=== PATIENT | male | born 1940 | race Caucasian/White ===

== ENCOUNTER 2019-09-26 00:12 | Inpatient (IN) | payer MEDICARE, BC, SELFPAY ==
[2019-09-26] VITALS (31 sets, daily range): BP systolic 112–150; BP diastolic 51–75; PULSE 60–87; RESP 17–26; TEMP 36.8–38.4; O2SAT 93–100; BMI 45.9
--- NOTE | ~2019-09-26 | US_ITS ---
EXAMINATION: US venous doppler [facility] DATE: 09/26/2019 14:29 INDICATION: Left lower limb edema. TECHNIQUE: Grayscale ultrasound images without and with compression and Doppler ultrasound images of the left lower extremity veins were obtained. COMPARISON: None. FINDINGS: The visualized portions of left common femoral vein, profunda (deep) femoral vein, femoral vein, popl iteal vein, peroneal veins, posterior tibial veins, and greater saphenous vein outflow are patent. IMPRESSION: 1. No deep venous thrombosis. Reviewed, dictated and finalized at location B. OR FIRE PROTECTION ENGINEER
--- NOTE | ~2019-09-26 | XR_ITS ---
EXAMINATION: XR chest 2V DATE: 09/26/2019 01:33 INDICATION: Transient alteration of awareness TECHNIQUE: frontal and lateral views of the chest were obtained. COMPARISON: Chest radiograph dated 03/28/2018 FINDINGS: Lung volumes are small. Calcified nodule in the right lower lung zone consistent with old granulomato us disease. No other airspace opacities, pulmonary edema, pleural effusion or pneumothorax. The cardi omediastinal silhouette is normal. Median sternotomy wires and mediastinal surgical clips are seen, l ikely from prior coronary artery bypass grafting. IMPRESSION: 1. No acute cardiopulmonary disease. Reviewed, dictated and finalized at location A. ERATIVE MANAGER
--- NOTE | ~2019-09-26 | US_ITS ---
EXAMINATION: US venous doppler [facility] DATE: 09/26/2019 14:28 INDICATION: Left upper limb edema. TECHNIQUE: Grayscale ultrasound images without and with compression and Doppler ultrasound images of the left upper extremity veins were obtained. COMPARISON: None. FINDINGS: The visualized portions of the left internal jugular vein, subclavian vein, axillary vein, brachial v eins, basilic vein, cephalic vein, radial vein, and ulnar vein are patent. IMPRESSION: 1. No deep venous thrombosis. Reviewed, dictated and finalized at location B. GRADER
--- NOTE | ~2019-09-26 | XR_ITS ---
EXAMINATION: XR chest 1V portable DATE: 09/30/2019 15:25 INDICATION: Shortness of breath and wheezing. TECHNIQUE: A single frontal view of the chest was obtained. COMPARISON: Chest 2 views 09/26/2019 FINDINGS: There are mild airspace opacities in right lower lung zone. No pleural effusion or pneumoth orax. The heart size is normal. Median sternotomy wires and mediastinal surgical clips are seen, like ly from prior coronary artery bypass grafting. IMPRESSION: 1. Mild airspace opacities in right lower lung zone, consistent with atelectasis versus pneumonia. Reviewed, dictated and finalized at location A. NOGRAPHY PROFESSOR IMPRESSION: 1. Mild airspace opacities in right lower lung zone, consistent with atelectasi s versus pneumonia.
--- NOTE | ~2019-09-26 | US_ITS ---
US renal BI 09/30/2019 16:47 Procedure: Realtime transabdominal ultrasound of the kidneys and bladder. Indication: UTI. Bacteremia. Comparison: No prior studies for comparison. Findings: Renal echotexture is normal bilaterally without hydronephrosis, contour deforming mass or r enal calculus. The right kidney measures 12 cm and left kidney measures 12.2 cm. Bladder within norm al limits. Impression: 1: Unremarkable renal ultrasound. No stones, masses or hydronephrosis. Reviewed, dictated and finalized at location A. ICAL AUDITOR Impression: 1: Unremarkable renal ultrasound. No stones, masses or hydronephrosis.
--- NOTE | 2019-09-26 00:17 | ED.AMS ---
HPI - Altered Mental Status General Chief Complaint: Altered Mental Status Stated Complaint: AMS Time Seen by Provider: 09/26/19 00:15 Source: EMS and RN notes reviewed Mode of arrival: EMS Limitations: altered mental status History of Present Illness HPI narrative: Pt is a 78 y/o male who presents to the ED, via EMS from [facility] D[facility] Unit, with c/o decreased level of responsiveness that began TOOLROOM CHECKER. EMS was at bedside and provided the information. EMS is unsure if pt is normally on O2 at baseline. Pt is currently on 2L O2 NC. Pt just finished his course of medication for a respiratory infection. HPI is limited due to pt's AMS. complaint: decreased responsiveness Onset (ago): unknown Context: diabetes Associated symptoms: other (limited due to pt's AMS) Treatments prior to arrival: oxygen Related Data Allergies Allergy/AdvReac Type Severity Reaction Status Date / Time No Known Allergies Allergy Verified 01/22/18 01:47 NKFA Allergy Unknown Uncoded 02/24/03 12:32 Review of Systems Review of Systems: ROS unobtainable: other (limited due to pt's AMS) Neurologic: Reports other (decreased level of responsiveness) [facility] Past Medical History Medical History (Updated 09/26/19 @ 03:16 by Madison Ramirez MD) Anxiety Atrial fibrillation BPH (benign prostatic hyperplasia) CAD (coronary artery disease) 3 stents right coronary 1988, CABG 1995 LOZANO to LAD, SADIE to RCA, vein graft to ramus, vein graft to circumflex, PCI 2006, CHF (congestive heart failure) echocardiogram March 2018: Mild concentric left ventricular hypertrophy, diastolic dysfunction, elevated left heart filling pressure, EF 55-60, atrial fibrillation, moderate left atrial enlargement Dementia with behaviors Depression DNR (do not resuscitate) HTN (hypertension) Hyperlipidemia Obstructive sleep apnea with CPAP of 9 recommended on polysomnogram from February 2017 Type II diabetes mellitus on oral medications Surgical History Surgical History (Updated 09/26/19 @ 02:05 by Nazanin Santos DO) H/O arthroscopic knee surgery left partial meniscectomy and chondroplasty May 2012 H/O colonoscopy 2010 Hx of CABG Four vessel CABG 1997 Family History Family History (Updated 03/31/16 @ 23:19 by DOCTOR UNKNOWN) Sibling Family history of blood dyscrasia Family history of diabetes mellitus in first degree relative Family history of dementia Family history of heart disease in male family member before age 55 Other Diabetes mellitus Family history of arthritis Family history of cardiovascular disease Family history of malignant neoplasm Social History Social History (Updated 09/26/19 @ 00:28 by Gracie Otero) Smoking status: Former smoker Smoking end date: 09/03/1959 Alcohol intake: never Gender identity (if verbalized by the patient): Male Exam Const: General: no acute distress and alert Nutritional Appearance: obese Limitations: other limitations (nonverbal) HENMT: Mouth: Yes lip normal and Yes dry mucous membranes Eyes: Pupils: Equal, round and reactive pupils present Resp: Effort & Inspection: normal respiratory effort Auscultation: wheezes (basilar) Cardio: Rate: regular rate Rhythm: regular rhythm Heart sounds: no murmurs GI: GI Palp: Yes Soft to palpation and No Tenderness to palpation present (GI) Auscultation: normal bowel sounds Skin: General skin exam: normal color Neuro: General: confusion and other (eyes open, alert, nonverbal) Extrem: General: normal to inspection, full ROM and no clubbing, cyanosis or edema Psych: Affect: normal affect Attitude: cooperative Course Course Emergency Course: Patient presents with fever and report of worsening mental status from [facility]. Unclear what patient's baseline level is given he has dementia. Patient reportedly nonverbal and has not been verbal in the emergency department. Patient with pyuria noted. Recent respiratory infection
--- NOTE | 2019-09-26 00:27 | ECG_ITS ---
Measurements Intervals [place] Rate: 63 P: CA: 0 QRS: 66 QRSD: 122 T: -21 QT: 420 QTc: 432 Interpretive Statements ATRIAL FIBRILLATION RIGHT BUNDLE BRANCH BLOCK NONSPECIFIC ST & T-WAVE ABNORMALITY- INFERIOR LEADS ABNORMAL ECG Electronically Signed On 09-26-2019 7:02:37 CORRECTIONS CADET by Ritesh Burton D.O.
[2019-09-26] MEDS: LACTATED RINGERS 1,000 ML 999 ML IV CONT (00:48)
[2019-09-26 00:51] LABS: Basophils Percent Auto 0.4 % (0.2-1.2); Eosinophils Percent Auto 0.4 % (0-4.4); Hematocrit 40.4 % (42.0-52.0); Hemoglobin 12.6 g/dL (14.0-18.0); Immature Granulocyte Absolute 0.11 K/mm3 (0.00-0.031); Lymphocytes Percent Auto 9.2 % (18.3-44.2); Mean Corpuscular HGB Conc 31.2 g/dl (32-36); Mean Corpuscular Hemoglobin 29.9 pg (26-34); Mean Platelet Volume 11.5 fl (7.4-10.4); Monocytes Absolute Auto 1.2 K/mm3 (0.1-0.6); Monocytes Percent Auto 10.6 % (2.6-8.5); Neutrophils Absolute Auto 8.5 K/mm3 (1.3-6.7); Neutrophils Percent Auto 78.4 % (45.5-73.1); Platelet Count Result 161 k/mm3 (150-375); Red Blood Count 4.21 M/mm3 (4.6-6.20); Red Cell Distribution Width 15.4 % (11.5-14.5); White Blood Count 10.8 K/mm3 (4.5-10.0)
[2019-09-26 01:00] LABS: INR 1.3
[2019-09-26 01:01] LABS: Partial Thromboplastin Time 41.7 SECONDS (22.3-36.8)
[2019-09-26 01:04] LABS: Lactic Acid Reflex 1.6 mmol/L (0.7-2.1)
[2019-09-26 01:09] LABS: Alanine Aminotransferase 33 U/L (4-50); Albumin Level 3.1 g/dL (3.5-5.1); Alkaline Phosphatase 115 U/L (38-126); Aspartate Amino Transferase 41 U/L (17-59); Bilirubin,Total 1.2 mg/dL (0.2-1.3); Blood Urea Nitrogen 22 mg/dL (9-20); Calcium 8.3 mg/dL (8.4-10.2); Carbon Dioxide 33 mmol/L (22-30); Chloride 103 mmol/L (98-107); Estimated CRCL calculation 72 ml/min; Estimated Glomerular Filt Rate > 60; Glucose 141 mg/dL (75-110); Potassium 3.8 mmol/L (3.4-5.0); Sodium 141 mmol/L (137-145)
[2019-09-26 01:16] LABS: Add Urine Microscopic? YES; Appearance Urine Clear (Clear); Bacteria Urine Trace /hpf; Bilirubin Urine Negative (Negative); Color Urine Amber (Yellow); Glucose Urine UA Negative (Negative); Ketones Urine Negative (Negative); Leukocyte Esterase Ur 1+ LEU/UL (Negative); Mucus Urine Rare /lpf; Nitrate Urine Negative (Negative); Protein Urine 1+ mg/dL (Negative); Specific Grav Ur 1.025 (1.001-1.035)
[2019-09-26 01:28] LABS: Blood Urine Negative (Negative)
[2019-09-26 01:31] LABS: CRP 16.7 mg/dL (<1.0)
--- NOTE | 2019-09-26 03:37 | PM.IMHP ---
H&P: HPI History of Present Illness Chief complaint: sepsis uti pneumonia Narrative: Fili Bay is a 78 year old male with a past medical history of of atrial fibrillation, BPH and dementia with behaviors who presented from [facility] dementia unit via EMS for worsening mental status from baseline. Source of information is ER records and past medical records. Patient is unable to provide any history due to his dementia. Patient arrived to the ER febrile with a temperature of 101.1?. He had evidently just finished a course of azithromycin on the for upper respiratory symptoms. Patient was noted to be wheezing on arrival to the ER. The patient will monitor curse words at staff if provided with noxious or painful stimuli. Patient was requiring 2 L nasal cannula in the ER to maintain oxygen saturations. Patient is incontinent of urine and is wearing an adult diaper. Review of Systems Review of Systems: ROS unobtainable: unobtainable due to mental status PMFSH Past Medical History Medical History (Updated 09/26/19 @ 03:49 by Nazanin Santos DO) Anxiety Atrial fibrillation BPH (benign prostatic hyperplasia) CAD (coronary artery disease) 3 stents right coronary 1988, CABG 1995 LOZANO to LAD, SADIE to RCA, vein graft to ramus, vein graft to circumflex, PCI 2006, CHF (congestive heart failure) echocardiogram March 2018: Mild concentric left ventricular hypertrophy, diastolic dysfunction, elevated left heart filling pressure, EF 55-60, atrial fibrillation, moderate left atrial enlargement Dementia with behaviors Depression DNR (do not resuscitate) HTN (hypertension) Hyperlipidemia Obstructive sleep apnea with CPAP of 9 recommended on polysomnogram from February 2017 . The patient has a long history of noncompliance. Type II diabetes mellitus on oral medications Surgical History Surgical History (Updated 09/26/19 @ 02:05 by Nazanin Santos DO) H/O arthroscopic knee surgery left partial meniscectomy and chondroplasty May 2012 H/O colonoscopy 2010 Hx of CABG Four vessel CABG 1997 Family History Family History (Updated 03/31/16 @ 23:19 by DOCTOR UNKNOWN) Sibling Family history of blood dyscrasia Family history of diabetes mellitus in first degree relative Family history of dementia Family history of heart disease in male family member before age 55 Other Diabetes mellitus Family history of arthritis Family history of cardiovascular disease Family history of malignant neoplasm Social History Social History (Updated 09/26/19 @ 04:39 by Nazanin Santos DO) Social History: The patient is a long-term resident of [facility] dementia unit. Code status: DNR primary care physician: Dr. Elie Moore Smoking status: Former smoker Smoking end date: 09/03/1959 Alcohol intake: never Living arrangements: assisted Gender identity (if verbalized by the patient): Male Meds Home Medications and Allergies Home Medications Medication Instructions Recorded Confirmed Type escitalopram oxalate 5 mg PO DAILY 09/26/19 History Allergies Allergy/AdvReac Type Severity Reaction Status Date / Time No Known Allergies Allergy Verified 09/26/19 03:19 Vital Signs Vital Signs - 24 hr 09/26/19 00:10 09/26/19 01:01 09/26/19 01:30 Temperature 101.1 F H 99.1 F Pulse Rate 64 62 Respiratory Rate 21 H 17 Blood Pressure 112/52 L 131/59 L Pulse Oximetry 95 09/26/19 03:00 Temperature Pulse Rate 71 Respiratory Rate 26 H Blood Pressure 150/75 H Pulse Oximetry 95 Exam Narrative: Exam Narrative: PHYSICAL EXAM: WEIGHT 121.4 kg BMI 45.9 General: Chronically ill-appearing, obese HEENT: Normocephalic atraumatic, pupils are equal and reactive, no scleral icterus, nasal cannula in place, nares patent, Neck: Large neck circumference, no JVD, supple Respiratory: End-expiratory wheezing, shallow respirations Cardiovascular:
[2019-09-26] MEDS: IPRATROPIUM BR 0.02% INH SOLN 0.5 MG/2.5 ML VIAL INHALATION ×4 (03:42→20:13)
[2019-09-26] MEDS: LEVALBUTEROL NEB 1.25 MG/3 ML INHALATION ×4 (03:42→20:13)
[2019-09-26] MEDS: LACTATED RINGERS 1,000 ML 150 ML IV CONT ×2 (04:19→10:56)
--- NOTE | 2019-09-26 05:35 | ADMGEN ---
This patient, Fili Bay, was admitted to Medical Room 249-01. Patient/family oriented to hospital policies and general routines including ID bracelet, bed and alarms, visiting hours, pain management, procedures, bathroom and other care routines, personal items, smoking policy, room service/diet, and visiting hours. Valuables list has been completed. Information on how to activate the Rapid Response Team has been discussed. Patient/Family are encouraged to report perceived risks to care and to ask questions if they do not understand what they are told or what they should do.
[2019-09-26 08:54] LABS: Glucose Point of Care 118 (65-105)
--- NOTE | 2019-09-26 14:13 | PM.IMPN ---
Progress Note: A&P Assessment and Plan (1) Dementia: Qualifiers: Dementia type: Alzheimer's disease Alzheimer's disease onset: late-onset Dementia behavioral disturbance: with behavioral disturbance Qualified Code(s): G30.1 - Alzheimer's disease with late onset; F02.81 - Dementia in other diseases classified elsewhere with behavioral disturbance Code(s): F03.90 - Unspecified dementia without behavioral disturbance Status: Acute Assessment and Plan: Patient is 78-year-old male resident of senior care with history of dementia atrial fibrillation had developed fever and had been more somnolent and confused to further evaluate patient was sent to emergency department patient is unable to provide any review of symptoms or history suspect the patient may have a UTI and possibly pneumonia however chest x-ray did not show any acute cardiomegaly pulmonary pathology suspect patient may have UTI and started the patient on Rocephin, IV hydration, Tylenol for fever his fever is trending down now his granddaughter is present in the room but unable to provide extensive history. (2) Bacteriuria with pyuria: Code(s): R82.71 - Bacteriuria; R82.81 - Pyuria Status: Acute Assessment and Plan: Patient is empirically treated with the Rocephin will follow up on urine culture and sensitivity (3) Sepsis: Qualifiers: Sepsis acute organ dysfunction status: without acute organ dysfunction Sepsis type: sepsis due to unspecified organism Qualified Code(s): A41.9 - Sepsis, unspecified organism Code(s): A41.9 - Sepsis, unspecified organism Status: Acute Assessment and Plan: Patient met the criteria upon arrival with a leukocytosis tachypnea fever and source of infection possibly UTI and pneumonia will continue to monitor and follow up on the blood urine culture (4) UTI (urinary tract infection): Code(s): N39.0 - Urinary tract infection, site not specified Status: Acute Assessment and Plan: Plan is above (5) Pneumonia: Qualifiers: Laterality: unspecified laterality Lung location: unspecified part of lung Pneumonia type: due to unspecified organism Qualified Code(s): J18.9 - Pneumonia, unspecified organism Code(s): J18.9 - Pneumonia, unspecified organism Status: Acute Assessment and Plan: Upon arrival suspected patient may have pneumonia however chest x-ray does not show any cardiopulmonary pathology will continue to monitor (6) Atrial fibrillation: Code(s): I48.91 - Unspecified atrial fibrillation Status: Acute Assessment and Plan: Rate is controlled patient is not anticoagulated likely secondary to dementia and risk of fall Subjective Date/time seen: 09/26/19 14:13 Patient is 78-year-old male resident of senior care with history of dementia atrial fibrillation had developed fever and had been more somnolent and confused to further evaluate patient was sent to emergency department patient is unable to provide any review of symptoms or history suspect the patient may have a UTI and possibly pneumonia however chest x-ray did not show any acute cardiomegaly pulmonary pathology suspect patient may have UTI and started the patient on Rocephin, IV hydration, Tylenol for fever his fever is trending down now his granddaughter is present in the room but unable to provide extensive history. Review of Systems Review of Systems: ROS unobtainable: unobtainable due to mental condition Exam Narrative: Exam Narrative: Elderly frail nonverbal Const: General: comfortable and no acute distress HENMT: General nose exam: Normal nares present Mouth: Yes moist mucous membranes Eyes: General: appearance normal, both eyes and all related structures Sclera: sclerae normal Neck: Neck: supple Resp: Effort & Inspection: normal respiratory effort Auscultation: clear to auscultation bilaterally Cardio: Rate: regular rate Rhythm
[2019-09-26 15:49] LABS: Glucose Point of Care 70 (65-105)
[2019-09-26 16:28] LABS: Glucose Point of Care 126 (65-105)
--- NOTE | 2019-09-26 16:58 | PC.NURSE ---
Called pharmacy and requested one time dose of IV Ibuprofen be sent to floor for administration.
[2019-09-26] MEDS: IBUPROFEN IV 800 MG/200 ML 800 MG/200 ML BAG 400 MG IVPB (17:15)
[2019-09-26 18:49] LABS: Glucose Point of Care 220 (65-105)
[2019-09-26] MEDS: INSULIN ASPART (*BKC) 100 UNITS/ML SUB-Q (19:20)
[2019-09-26] MEDS: DABIGATRAN ETEXILATE 150 MG CAPSULE PO (20:54)
[2019-09-26] MEDS: FUROSEMIDE INJ 40 MG/4 ML VIAL IV PUSH (20:54)
[2019-09-26] MEDS: ATORVASTATIN 20 MG TABLET PO (20:55)
[2019-09-26] MEDS: DOXAZOSIN MESYLATE 4 MG TABLET 8 MG PO (20:58)
[2019-09-26] MEDS: DIVALPROEX SODIUM SPRINKLE 125 MG CAP.DR 250 MG PO (20:59)
[2019-09-26] MEDS: MEMANTINE 10 MG TABLET PO (21:02)
[2019-09-26] MEDS: FAMOTIDINE 20 MG TABLET 40 MG PO (21:02)
[2019-09-26 23:10] LABS: Glucose Point of Care 146 (65-105)
[2019-09-27] VITALS (25 sets, daily range): BP systolic 118–135; BP diastolic 48–73; PULSE 62–94; RESP 18–24; TEMP 36.1–39.2; O2SAT 91–98
[2019-09-27] MEDS: LEVALBUTEROL NEB 1.25 MG/3 ML INHALATION ×3 (02:01→14:22)
[2019-09-27] MEDS: IPRATROPIUM BR 0.02% INH SOLN 0.5 MG/2.5 ML VIAL INHALATION ×4 (02:01→19:16)
[2019-09-27 05:40] LABS: Hematocrit 37.1 % (42.0-52.0); Hemoglobin 11.3 g/dL (14.0-18.0); Immature Platelet Fraction Pct 5.6 % (0.9-11.2); Mean Corpuscular HGB Conc 30.5 g/dl (32-36); Mean Corpuscular Hemoglobin 29.4 pg (26-34); Mean Corpuscular Volume 96.4 fl (80-100); Mean Platelet Volume 11.6 fl (7.4-10.4); Platelet Count Result 135 k/mm3 (150-375); Red Blood Count 3.85 M/mm3 (4.6-6.20); Red Cell Distribution Width 15.5 % (11.5-14.5); White Blood Count 11.3 K/mm3 (4.5-10.0)
[2019-09-27 06:00] LABS: Blood Urea Nitrogen 22 mg/dL (9-20); Calcium 7.9 mg/dL (8.4-10.2); Carbon Dioxide 32 mmol/L (22-30); Chloride 103 mmol/L (98-107); Estimated CRCL calculation 72 ml/min; Estimated Glomerular Filt Rate > 60; Glucose 126 mg/dL (75-110); Potassium 3.5 mmol/L (3.4-5.0); Sodium 142 mmol/L (137-145)
[2019-09-27] MEDS: POTASSIUM CHLORIDE 10 MEQ TABLET.ER PO (08:03)
[2019-09-27] MEDS: POTASSIUM CHLORIDE 20 MEQ PACKET (FOR LIQUID) 40 MEQ PO (08:03)
[2019-09-27] MEDS: DONEPEZIL HCL 10 MG TABLET PO (08:03)
[2019-09-27] MEDS: DABIGATRAN ETEXILATE 150 MG CAPSULE PO ×2 (08:03→17:47)
[2019-09-27] MEDS: DIVALPROEX SODIUM SPRINKLE 125 MG CAP.DR 250 MG PO ×2 (08:03→20:57)
[2019-09-27] MEDS: ACETAMINOPHEN 325 MG TABLET 650 MG PO ×2 (08:03→18:16)
[2019-09-27] MEDS: GLIMEPIRIDE 2 MG TABLET PO (08:04)
[2019-09-27] MEDS: MEMANTINE 10 MG TABLET PO ×2 (08:04→20:58)
[2019-09-27] MEDS: FAMOTIDINE 20 MG TABLET 40 MG PO ×2 (08:04→20:58)
[2019-09-27] MEDS: ESCITALOPRAM OXALATE 5 MG TABLET PO (08:04)
[2019-09-27] MEDS: LOSARTAN POTASSIUM 100 MG TABLET PO (08:04)
[2019-09-27] MEDS: METOPROLOL SUCCINATE EXT REL 50 MG TABCR PO (08:04)
[2019-09-27] MEDS: FUROSEMIDE 40 MG TABLET PO ×2 (08:04→17:47)
[2019-09-27 08:44] LABS: Magnesium 2.1 mg/dL (1.6-2.3)
[2019-09-27 08:54] LABS: NT Pro B Type Natriuretic Pept 3750 PG/ML (5-100)
[2019-09-27 09:31] LABS: Glucose Point of Care 114 (65-105)
[2019-09-27 12:41] LABS: Glucose Point of Care 161 (65-105)
--- NOTE | 2019-09-27 15:09 | PM.IMPN ---
Progress Note: A&P Assessment and Plan (1) Dementia: Qualifiers: Dementia type: Alzheimer's disease Alzheimer's disease onset: late-onset Dementia behavioral disturbance: with behavioral disturbance Qualified Code(s): G30.1 - Alzheimer's disease with late onset; F02.81 - Dementia in other diseases classified elsewhere with behavioral disturbance Code(s): F03.90 - Unspecified dementia without behavioral disturbance Status: Acute Assessment and Plan: 09/27/19 15:09 Patient is 78-year-old male resident of senior care with history of dementia atrial fibrillation had developed fever and had been more somnolent and confused to further evaluate patient was sent to emergency department patient is unable to provide any review of symptoms or history suspect the patient may have a UTI and possibly pneumonia however chest x-ray did not show any acute cardiomegaly pulmonary pathology, suspect patient may have UTI and started the patient on Rocephin, IV hydration, patient patient urine and blood a growing Proteus mirabilis sensitive to Rocephin Tylenol for fever his fever is trending down, today patient is little more of a does smile his is present in the room sees able to communicate somewhat and feeding him, will consult ID for further recommendation (2) Bacteriuria with pyuria: Code(s): R82.71 - Bacteriuria; R82.81 - Pyuria Status: Acute Assessment and Plan: Plan is above (3) Sepsis: Qualifiers: Sepsis acute organ dysfunction status: without acute organ dysfunction Sepsis type: sepsis due to unspecified organism Qualified Code(s): A41.9 - Sepsis, unspecified organism Code(s): A41.9 - Sepsis, unspecified organism Status: Acute Assessment and Plan: Patient met the criteria upon arrival with a leukocytosis tachypnea fever and source is UTI urine blood cultures is growing Proteus mirabilis sensitive to Rocephin will continue will consult ID for further recommendation (4) UTI (urinary tract infection): Code(s): N39.0 - Urinary tract infection, site not specified Status: Acute Assessment and Plan: Plan is above (5) Pneumonia: Qualifiers: Laterality: unspecified laterality Lung location: unspecified part of lung Pneumonia type: due to unspecified organism Qualified Code(s): J18.9 - Pneumonia, unspecified organism Code(s): J18.9 - Pneumonia, unspecified organism Status: Acute Assessment and Plan: Upon arrival suspected patient may have pneumonia however chest x-ray does not show any cardiopulmonary pathology will continue to monitor (6) Atrial fibrillation: Code(s): I48.91 - Unspecified atrial fibrillation Status: Acute Assessment and Plan: Rate is controlled patient is anticoagulated with Pradaxa Subjective Date/time seen: 09/27/19 15:09 Patient is 78-year-old male resident of senior care with history of dementia atrial fibrillation had developed fever and had been more somnolent and confused to further evaluate patient was sent to emergency department patient is unable to provide any review of symptoms or history suspect the patient may have a UTI and possibly pneumonia however chest x-ray did not show any acute cardiomegaly pulmonary pathology, suspect patient may have UTI and started the patient on Rocephin, IV hydration, patient patient urine and blood a growing Proteus mirabilis sensitive to Rocephin Tylenol for fever his fever is trending down, today patient is little more of a does smile his is present in the room sees able to communicate somewhat and feeding him Review of Systems Review of Systems: ROS unobtainable: unobtainable due to mental condition Exam Narrative: Exam Narrative: Elderly frail nonverbal Const: General: comfortable and no acute distress HENMT: General nose exam: Normal nares present Mouth: Yes moist mucous membranes Eyes: General: appearance
--- NOTE | 2019-09-27 16:23 | PC.NURSE ---
Call from lab in concerns to blood culture growing proteus mirabilis. Dr. Jung and ID made aware at lunchtime and patient currently on IV rocephin per ID recommendations.
[2019-09-27 18:20] LABS: Glucose Point of Care 78 (65-105)
[2019-09-27] MEDS: ACETAMINOPHEN 325 MG TABLET PO (20:54)
[2019-09-27] MEDS: ATORVASTATIN 20 MG TABLET PO (20:55)
[2019-09-27] MEDS: DOXAZOSIN MESYLATE 4 MG TABLET 8 MG PO (20:57)
[2019-09-27 22:10] LABS: Glucose Point of Care 121 (65-105)
[2019-09-28] VITALS (21 sets, daily range): BP systolic 142–161; BP diastolic 65–75; PULSE 65–98; RESP 16–24; TEMP 36.4–38.7; O2SAT 95–98
[2019-09-28] MEDS: IPRATROPIUM BR 0.02% INH SOLN 0.5 MG/2.5 ML VIAL INHALATION ×4 (02:45→20:02)
[2019-09-28] MEDS: LEVALBUTEROL NEB 1.25 MG/3 ML INHALATION ×4 (02:46→20:02)
[2019-09-28 06:12] LABS: Hematocrit 38.9 % (42.0-52.0); Hemoglobin 11.9 g/dL (14.0-18.0); Mean Corpuscular HGB Conc 30.6 g/dl (32-36); Mean Corpuscular Hemoglobin 29.5 pg (26-34); Mean Corpuscular Volume 96.5 fl (80-100); Mean Platelet Volume 12.6 fl (7.4-10.4); Platelet Count Result 123 k/mm3 (150-375); Red Blood Count 4.03 M/mm3 (4.6-6.20); Red Cell Distribution Width 15.6 % (11.5-14.5); White Blood Count 10.2 K/mm3 (4.5-10.0)
[2019-09-28 06:31] LABS: Blood Urea Nitrogen 21 mg/dL (9-20); Calcium 8.1 mg/dL (8.4-10.2); Carbon Dioxide 30 mmol/L (22-30); Chloride 102 mmol/L (98-107); Estimated CRCL calculation 72 ml/min; Estimated Glomerular Filt Rate > 60; Glucose 82 mg/dL (75-110); Potassium 3.5 mmol/L (3.4-5.0); Sodium 140 mmol/L (137-145)
[2019-09-28] MEDS: DABIGATRAN ETEXILATE 150 MG CAPSULE PO ×2 (08:25→16:49)
[2019-09-28] MEDS: FUROSEMIDE INJ 40 MG/4 ML VIAL 20 MG IV PUSH ×2 (08:25→16:49)
[2019-09-28] MEDS: POTASSIUM CHLORIDE 20 MEQ PACKET (FOR LIQUID) 40 MEQ PO (08:25)
[2019-09-28] MEDS: LOSARTAN POTASSIUM 100 MG TABLET PO (08:26)
[2019-09-28] MEDS: DONEPEZIL HCL 10 MG TABLET PO (08:26)
[2019-09-28] MEDS: POTASSIUM CHLORIDE 10 MEQ TABLET.ER PO (08:26)
[2019-09-28] MEDS: DIVALPROEX SODIUM SPRINKLE 125 MG CAP.DR 250 MG PO ×2 (08:27→20:45)
[2019-09-28] MEDS: FAMOTIDINE 20 MG TABLET 40 MG PO ×2 (08:27→20:45)
[2019-09-28] MEDS: ESCITALOPRAM OXALATE 5 MG TABLET PO (08:28)
[2019-09-28] MEDS: MEMANTINE 10 MG TABLET PO ×2 (08:28→20:45)
[2019-09-28] MEDS: METOPROLOL SUCCINATE EXT REL 50 MG TABCR PO (08:28)
--- NOTE | 2019-09-28 08:28 | WPDINFPN2 ---
Progress Note: A&P Assessment and Plan (1) UTI (urinary tract infection): Code(s): N39.0 - Urinary tract infection, site not specified Status: Acute Assessment and Plan: Proteus bacteremia due to UTI REC Amp #1 and f/u Subjective Date/time seen: 09/28/19 08:28 Objective Data Vital Signs Vital Signs: Vital Signs - 24 hr 09/27/19 08:32 09/27/19 08:40 09/27/19 09:14 Temperature Pulse Rate 87 93 Respiratory Rate 18 18 Blood Pressure Pulse Oximetry 97 96 09/27/19 10:03 09/27/19 12:00 09/27/19 14:00 Temperature 36.8 C Pulse Rate 62 66 Respiratory Rate 19 Blood Pressure 135/72 Pulse Oximetry 92 98 09/27/19 14:24 09/27/19 14:32 09/27/19 16:00 Temperature Pulse Rate 64 73 80 Respiratory Rate 18 18 Blood Pressure Pulse Oximetry 09/27/19 17:48 09/27/19 18:16 09/27/19 19:18 Temperature 37.8 C H 37.8 C H Pulse Rate 69 Respiratory Rate 18 Blood Pressure Pulse Oximetry 09/27/19 19:25 09/27/19 20:00 09/27/19 20:20 Temperature 39.2 C H Pulse Rate 70 88 94 Respiratory Rate 18 24 H Blood Pressure 132/48 L Pulse Oximetry 91 09/27/19 20:54 09/27/19 21:45 09/28/19 00:00 Temperature 39.2 C H 36.9 C Pulse Rate 65 Respiratory Rate Blood Pressure Pulse Oximetry 09/28/19 02:00 09/28/19 02:10 09/28/19 04:00 Temperature Pulse Rate 65 66 72 Respiratory Rate 18 18 Blood Pressure Pulse Oximetry 09/28/19 05:45 09/28/19 07:50 09/28/19 07:52 Temperature 36.4 C Pulse Rate 86 72 Respiratory Rate 22 H 18 Blood Pressure 161/75 H Pulse Oximetry 98 95 09/28/19 07:59 Temperature Pulse Rate 70 Respiratory Rate 18 Blood Pressure Pulse Oximetry Intake/Output Intake/Output: Intake & Output 09/25/19 09/26/19 09/27/19 09/28/19 23:59 23:59 23:59 23:59 Intake Total 4771 2200 50 Output Total 200 1050 Balance 4571 1150 50 Meds/Results Medications: Active Medications Generic Name Dose Route Start Last Admin Trade Name Freq PRN Reason Stop Dose Admin Acetaminophen 650 mg 09/27/19 17:50 09/27/19 18:16 Tylenol Tablet PO 650 mg Q6H PRN Administration Mild Pain (1-3) or Fever Atorvastatin Calcium 20 mg 09/26/19 21:00 09/27/19 20:55 Lipitor PO 20 mg HS SYLVESTER Administration Dabigatran 150 mg 09/26/19 17:00 09/27/19 17:47 Pradaxa PO 150 mg BID SYLVESTER Administration Dextrose 12.5 gm 09/26/19 18:43 Dextrose 50% Syringe IV PUSH PRN PRN Hypoglycemia Protocol Divalproex Sodium 250 mg 09/26/19 21:00 09/27/19 20:57 Depakote Sprinkle PO 250 mg Q12HR SYLVESTER Administration Donepezil HCl 10 mg 09/27/19 09:00 09/27/19 08:03 Aricept PO 10/27/19 09:01 10 mg DAILY SYLVESTER Administration Doxazosin Mesylate 8 mg 09/26/19 21:00 09/27/19 20:57 Cardura PO 8 mg HS SYLVESTER Administration Escitalopram Oxalate 5 mg 09/27/19 09:00 09/27/19 08:04 Lexapro PO 5 mg DAILY SYLVESTER Administration Famotidine 40 mg 09/26/19 21:00 09/27/19 20:58 Pepcid PO 40 mg Q12HR SYLVESTER Administration Furosemide 20 mg 09/28/19 09:00 Lasix Inj IV PUSH BID SYLVESTER Glimepiride 2 mg 09/27/19 09:00 09/27/19 08:04 Amaryl PO 10/27/19 09:01 2 mg DAILY SYLVESTER Administration Glucagon 1 mg 09/26/19 18:43 Glucagon For Inj IM PRN PRN Hypoglycemia Protocol Glucose 15 gm 09/26/19 18:43 Glutose 15 PO PRN PRN Hypoglycemia Protocol Guaifenesin 600 mg 09/26/19 18:57 Mucinex 12 Hr Tab PO Q12H PRN CHEST Congestion Dextrose 1,000 mls @ 100 mls/hr 09/26/19 18:43 Dextrose 5% 1,000 Ml IVPB PRN PRN Hypoglycemia Protocol Insulin Aspart 2 - 5 units 09/26/19 17:00 09/27/19 17:46 Novolog SUB-Q Not Given TIDWM [facility] Protocol Ipratropium [place] 0.5 mg 09/26/19 02:00 09/28/19 07:50 Atrovent Neb INHALATION 0.5 mg Q6HRT SYLVESTER Administration
--- NOTE | 2019-09-28 08:35 | PC.NURSE ---
Patient given 4 ounces of apple juice for BG of 67, refused oral glucose gel.
[2019-09-28 10:50] LABS: Glucose Point of Care 67 (65-105)
[2019-09-28 10:50] LABS: Glucose Point of Care 87 (65-105)
--- NOTE | 2019-09-28 11:45 | PM.IMPN ---
Progress Note: A&P Assessment and Plan (1) Dementia: Qualifiers: Alzheimer's disease onset: late-onset Dementia behavioral disturbance: with behavioral disturbance Dementia type: Alzheimer's disease Qualified Code(s): G30.1 - Alzheimer's disease with late onset; F02.81 - Dementia in other diseases classified elsewhere with behavioral disturbance Code(s): F03.90 - Unspecified dementia without behavioral disturbance Status: Acute Assessment and Plan: 09/28/19 11:45 Patient is 78-year-old male resident of longterm with history of dementia atrial fibrillation had developed fever and had been more somnolent and confused to further evaluate patient was sent to emergency department patient is unable to provide any review of symptoms or history suspect the patient may have a UTI and possibly pneumonia however chest x-ray did not show any acute cardiomegaly pulmonary pathology, suspect patient may have UTI and started the patient on Rocephin, IV hydration, patient patient urine and blood a growing Proteus mirabilis sensitive to Rocephin Tylenol for fever his fever is trending down, today patient is little more alert and awake, patient is on abx on 09/27 patient had fever will consult ID for further recommendation (2) Bacteriuria with pyuria: Code(s): R82.71 - Bacteriuria; R82.81 - Pyuria Status: Acute Assessment and Plan: Plan is above (3) Sepsis: Qualifiers: Sepsis acute organ dysfunction status: without acute organ dysfunction Sepsis type: sepsis due to unspecified organism Qualified Code(s): A41.9 - Sepsis, unspecified organism Code(s): A41.9 - Sepsis, unspecified organism Status: Acute Assessment and Plan: Patient met the criteria upon arrival with a leukocytosis tachypnea fever and source is UTI urine blood cultures is growing Proteus mirabilis sensitive to Rocephin will continue will consult ID for further recommendation (4) UTI (urinary tract infection): Code(s): N39.0 - Urinary tract infection, site not specified Status: Acute Assessment and Plan: Plan is above (5) Pneumonia: Qualifiers: Laterality: unspecified laterality Lung location: unspecified part of lung Pneumonia type: due to unspecified organism Qualified Code(s): J18.9 - Pneumonia, unspecified organism Code(s): J18.9 - Pneumonia, unspecified organism Status: Acute Assessment and Plan: Upon arrival suspected patient may have pneumonia however chest x-ray does not show any cardiopulmonary pathology will continue to monitor (6) Atrial fibrillation: Code(s): I48.91 - Unspecified atrial fibrillation Status: Acute Assessment and Plan: Rate is controlled patient is anticoagulated with Pradaxa Subjective Date/time seen: 09/28/19 11:45 Patient is 78-year-old male resident of longterm with history of dementia atrial fibrillation had developed fever and had been more somnolent and confused to further evaluate patient was sent to emergency department patient is unable to provide any review of symptoms or history suspect the patient may have a UTI and possibly pneumonia however chest x-ray did not show any acute cardiomegaly pulmonary pathology, suspect patient may have UTI and started the patient on Rocephin, IV hydration, patient patient urine and blood a growing Proteus mirabilis sensitive to Rocephin Tylenol for fever his fever is trending down, today patient is little more alert and awake, patient is on abx on 09/27 patinet had fever will consult ID for further recommendation Review of Systems Review of Systems: ROS unobtainable: unobtainable due to mental condition and unobtainable due to mental status Exam Narrative: Exam Narrative: Elderly frail nonverbal Const: General: comfortable and no acute distress HENMT: General nose exam: Normal nares present Mouth: Yes moist mucous membranes Eyes: General: appear
--- NOTE | 2019-09-28 12:42 | CONS_ITS ---
DATE OF CONSULTATION: 09/28/2019 REASON FOR CONSULTATION: Proteus bacteremia. HISTORY OF PRESENT ILLNESS: The patient is a 78-year-old male who cannot provide any history. He was admitted to the hospital early on the morning of the from his [facility] with alleged altered mental status, not otherwise specified. In the emergency room, however, he did have a temperature 38.3. He is being given ceftriaxone for suspected UTI. Blood cultures now positive. Consultation requested. He was given azithromycin earlier as well due to wheezing. HABITS: Ex-smoker in the distant past. No alcohol. PRESENT MEDICATIONS: No immunosuppressants. ALLERGIES: NONE KNOWN. PAST MEDICAL HISTORY: CABG, colonoscopy, arthroscopic knee surgery, type 2 diabetes mellitus, ALIA, hyperlipidemia, hypertension, dementia, previous heart failure, CAD, BPH, and AF. REVIEW OF SYSTEMS: A 14-point review attempted from the patient, not obtainable as he is aphasic. FAMILY HISTORY: Not pertinent to his present illness. SOCIAL HISTORY: Long-term [facility] resident. No family at the bedside. PHYSICAL EXAMINATION: GENERAL: This is an elderly male who appears his actual age, in no distress. VITAL SIGNS: Since arrival T-max 38.4, initially in the last 24 hours 39.2, 22, 161/75, 86, 95% on room air. SKIN: No generalized rashes. No skin breakdown. EENT: The conjunctivae are clear. The patient will not cooperate for full exam, but the pupils appear to be reactive. He has dry mucous membranes and some superficial erosions over the soft palate. No thrush. NECK: Without meningismus, thyromegaly, or mass. LUNGS: Clear to auscultation on tidal respirations. BACK: No CVAT. CARDIAC: Regular rate and rhythm without murmur, gallop, or rub. Radial pulses 1+. Dorsalis pedis pulses 1+. ABDOMEN: Morbidly obese. No tenderness is apparent. He has no guarding. No masses. : Circumcised male. No catheter. EXTREMITIES: 1+ ankle edema. LABORATORY DATA: Blood cultures and urine cultures, all positive Proteus mirabilis. I reviewed the susceptibilities in full. His MRSA screen negative, white count initially 10.8, now 10.2, hemoglobin stable 11.9, platelets are 123, no differential done today; earlier showed minimal left shift. Prothrombin time 16.0. His chemistry panel is normal except for CO2 of 21, calcium is 8.1, but his albumin is only 3.1. BNP high 3750. His urinalysis, multiple abnormalities, which are reviewed. RADIOLOGICAL DATA: Chest x-ray, no abnormalities. ASSESSMENT: 1. Proteus bacteremia with infection, due to urinary tract infection. Other sources of the bacteremia are unlikely. Other sources of his fever are unlikely. 2. Dementia. 3. Benign prostatic hyperplasia in the past contributing toward his present illness. 4. Previous coronary artery bypass grafting. 5. Dementia. RECOMMENDATIONS: 1. Adjust to ampicillin monotherapy. 2. If fever persists, will need further investigation such as renal ultrasound. However, I would not order at the present time. 3. Length of therapy to be determined. Thank you very much for asking me see him. DON HEART M.D. [employer] D I MT: Erendira
[2019-09-28 12:43] LABS: Glucose Point of Care 88 (65-105)
[2019-09-28] MEDS: ACETAMINOPHEN 325 MG TABLET 650 MG PO (16:46)
[2019-09-28] MEDS: AMPICILLIN 2 GM/NS 100 ML 2 GM/100 ML BAG IVPB (17:35)
[2019-09-28 19:43] LABS: Glucose Point of Care 132 (65-105)
[2019-09-28] MEDS: DOXAZOSIN MESYLATE 4 MG TABLET 8 MG PO (20:45)
[2019-09-28] MEDS: ATORVASTATIN 20 MG TABLET PO (20:45)
[2019-09-29] VITALS (23 sets, daily range): BP systolic 120–161; BP diastolic 55–91; PULSE 61–88; RESP 16–24; TEMP 36.3–39.2; O2SAT 93–95
[2019-09-29] MEDS: AMPICILLIN 2 GM/NS 100 ML 2 GM/100 ML BAG IVPB ×4 (00:30→23:51)
[2019-09-29 01:29] LABS: Glucose Point of Care 167 (65-105)
[2019-09-29] MEDS: IPRATROPIUM BR 0.02% INH SOLN 0.5 MG/2.5 ML VIAL INHALATION ×4 (01:52→20:47)
[2019-09-29] MEDS: LEVALBUTEROL NEB 1.25 MG/3 ML INHALATION ×4 (01:52→20:47)
[2019-09-29 05:42] LABS: Hematocrit 36.7 % (42.0-52.0); Hemoglobin 11.3 g/dL (14.0-18.0); Mean Corpuscular HGB Conc 30.8 g/dl (32-36); Mean Corpuscular Hemoglobin 29.4 pg (26-34); Mean Corpuscular Volume 95.6 fl (80-100); Platelet Count Result 160 k/mm3 (150-375); Red Blood Count 3.84 M/mm3 (4.6-6.20); Red Cell Distribution Width 15.4 % (11.5-14.5); White Blood Count 9.8 K/mm3 (4.5-10.0)
[2019-09-29 05:58] LABS: Blood Urea Nitrogen 20 mg/dL (9-20); Calcium 7.9 mg/dL (8.4-10.2); Carbon Dioxide 31 mmol/L (22-30); Chloride 102 mmol/L (98-107); Estimated CRCL calculation 80 ml/min; Estimated Glomerular Filt Rate > 60; Glucose 167 mg/dL (75-110); Potassium 3.9 mmol/L (3.4-5.0); Sodium 140 mmol/L (137-145)
[2019-09-29 07:43] LABS: Glucose Point of Care 135 (65-105)
[2019-09-29] MEDS: DIVALPROEX SODIUM SPRINKLE 125 MG CAP.DR 250 MG PO ×2 (08:29→21:01)
[2019-09-29] MEDS: DABIGATRAN ETEXILATE 150 MG CAPSULE PO ×2 (08:29→17:11)
[2019-09-29] MEDS: DONEPEZIL HCL 10 MG TABLET PO (08:29)
[2019-09-29] MEDS: MEMANTINE 10 MG TABLET PO ×2 (08:30→21:01)
[2019-09-29] MEDS: FAMOTIDINE 20 MG TABLET 40 MG PO ×2 (08:30→21:00)
[2019-09-29] MEDS: FUROSEMIDE INJ 40 MG/4 ML VIAL 20 MG IV PUSH ×2 (08:30→17:11)
[2019-09-29] MEDS: LOSARTAN POTASSIUM 100 MG TABLET PO (08:30)
[2019-09-29] MEDS: POTASSIUM CHLORIDE 10 MEQ TABLET.ER PO (08:31)
[2019-09-29] MEDS: ESCITALOPRAM OXALATE 5 MG TABLET PO (08:31)
[2019-09-29] MEDS: METOPROLOL SUCCINATE EXT REL 50 MG TABCR PO (08:31)
--- NOTE | 2019-09-29 11:38 | WPDINFPN2 ---
Progress Note: A&P Assessment and Plan (1) UTI (urinary tract infection): Qualifiers: Urinary tract infection type: site unspecified Hematuria presence: with hematuria Qualified Code(s): N39.0 - Urinary tract infection, site not specified; R31.9 - Hematuria, unspecified Code(s): N39.0 - Urinary tract infection, site not specified Status: Acute Assessment and Plan: 1. Proteus bacteremia due to UTI, other sources unlikely for the + BC. Still febrile 2. Dementia 3. BPH REC Amp #2 (antibiotic # 4), continue. No new imaging needed. No dose adjustments. If fever > 48 hours more, however, suggest renal / bladder US. Subjective Date/time seen: 09/29/19 11:38 Interval history: he is irritable when moved, bedridden. No Gu catheter Exam Narrative: Exam Narrative: t max 38.7 since last visit Const: General: no acute distress Other: morbid obese Eyes: General: appearance normal, both eyes and all related structures Resp: Effort & Inspection: normal respiratory effort Auscultation: clear to auscultation bilaterally Cardio: Rate: regular rate Rhythm: regular rhythm Heart sounds: no gallops and no murmurs GI: Inspection: non-distended GI Palp: Yes Soft to palpation : Male General Exam: Yes normal external exam Skin: General skin exam: normal color and no rashes or lesions noted Other: no back skin breakdown Objective Data Vital Signs Vital Signs: Vital Signs - 24 hr 09/28/19 12:00 09/28/19 14:00 09/28/19 14:18 Temperature 36.9 C Pulse Rate 91 94 69 Respiratory Rate 24 H 16 Blood Pressure 146/70 H Pulse Oximetry 96 09/28/19 14:28 09/28/19 16:00 09/28/19 16:46 Temperature 38.7 C H Pulse Rate 71 98 Respiratory Rate 18 Blood Pressure Pulse Oximetry 09/28/19 17:46 09/28/19 20:00 09/28/19 20:03 Temperature 37.8 C H Pulse Rate 74 77 Respiratory Rate 18 Blood Pressure Pulse Oximetry 09/28/19 20:10 09/28/19 22:00 09/29/19 00:00 Temperature 36.5 C Pulse Rate 76 66 68 Respiratory Rate 18 16 Blood Pressure 142/65 H Pulse Oximetry 96 09/29/19 01:53 09/29/19 02:00 09/29/19 04:00 Temperature Pulse Rate 69 66 61 Respiratory Rate 18 18 Blood Pressure Pulse Oximetry 09/29/19 06:00 09/29/19 08:15 09/29/19 08:31 Temperature 36.3 C L Pulse Rate 65 75 75 Respiratory Rate 18 Blood Pressure 124/74 159/91 H Pulse Oximetry 95 09/29/19 08:52 09/29/19 09:10 Temperature Pulse Rate 68 75 Respiratory Rate 18 18 Blood Pressure Pulse Oximetry 93 Intake/Output Intake/Output: Intake & Output 09/26/19 09/27/19 09/28/19 09/29/19 23:59 23:59 23:59 23:59 Intake Total 4771 2200 1370 200 Output Total 200 1050 Balance 4571 1150 1370 200 Meds/Results Medications: Active Medications Generic Name Dose Route Start Last Admin Trade Name Freq PRN Reason Stop Dose Admin Acetaminophen 650 mg 09/27/19 17:50 09/28/19 16:46 Tylenol Tablet PO 650 mg Q6H PRN Administration Mild Pain (1-3) or Fever Atorvastatin Calcium 20 mg 09/26/19 21:00 09/28/19 20:45 Lipitor PO 20 mg HS SYLVESTER Administration Dabigatran 150 mg 09/26/19 17:00 09/29/19 08:29 Pradaxa PO 150 mg BID SYLVESTER Administration Dextrose 12.5 gm 09/26/19 18:43 Dextrose 50% Syringe IV PUSH PRN PRN Hypoglycemia Protocol Divalproex Sodium 250 mg 09/26/19 21:00 09/29/19 08:29 Depakote Sprinkle PO 250 mg Q12HR SYLVESTER Administration Donepezil HCl 10 mg 09/27/19 09:00 09/29/19 08:29 Aricept PO 10/27/19 09:01 10 mg DAILY SYLVESTER Administration Doxazosin Mesylate 8 mg 09/26/19 21:00 09/28/19 20:45 Cardura PO 8 mg HS SYLVESTER Administration Escitalopram Oxalate 5 mg 09/27/19 09:00 09/29/19 08:31 Lexapro PO 5 mg DAILY SYLVESTER Administration Famotidine 40 mg 09/26/19 21:00 09/29/19 08:30 Pepcid PO 40 mg Q12HR SYLVESTER Administration Furosemide 20 mg
[2019-09-29 12:24] LABS: Glucose Point of Care 137 (65-105)
--- NOTE | 2019-09-29 15:00 | PM.IMPN ---
Progress Note: A&P Assessment and Plan (1) Dementia: Qualifiers: Dementia type: Alzheimer's disease Alzheimer's disease onset: late-onset Dementia behavioral disturbance: with behavioral disturbance Qualified Code(s): G30.1 - Alzheimer's disease with late onset; F02.81 - Dementia in other diseases classified elsewhere with behavioral disturbance Code(s): F03.90 - Unspecified dementia without behavioral disturbance Status: Acute Assessment and Plan: 09/29/19 15:00 Patient is 78-year-old male resident of [facility] with history of dementia atrial fibrillation had developed fever and had been more somnolent and confused to further evaluate patient was sent to emergency department patient is unable to provide any review of symptoms or history suspect the patient may have a UTI and possibly pneumonia however chest x-ray did not show any acute cardiomegaly pulmonary pathology, suspect patient may have UTI and started the patient on Rocephin, IV hydration, patient patient urine and blood a growing Proteus mirabilis sensitive to Rocephin and ampillicin patient is seen by started the patient on Amipillicin and continue if patient develop fever in 48hrs, will need renaland bladder US, Tylenol for fever his fever is trending down, today patient is little more alert and awake, no family member present. (2) Bacteriuria with pyuria: Code(s): R82.71 - Bacteriuria; R82.81 - Pyuria Status: Acute Assessment and Plan: Plan is above (3) Sepsis: Qualifiers: Sepsis acute organ dysfunction status: without acute organ dysfunction Sepsis type: sepsis due to unspecified organism Qualified Code(s): A41.9 - Sepsis, unspecified organism Code(s): A41.9 - Sepsis, unspecified organism Status: Acute Assessment and Plan: Patient met the criteria upon arrival with a leukocytosis tachypnea fever and source is UTI urine blood cultures is growing Proteus mirabilis sensitive to Rocephin and ampicillin, seen by Dr. Freeman and plan is above. (4) UTI (urinary tract infection): Qualifiers: Hematuria presence: with hematuria Urinary tract infection type: site unspecified Qualified Code(s): N39.0 - Urinary tract infection, site not specified; R31.9 - Hematuria, unspecified Code(s): N39.0 - Urinary tract infection, site not specified Status: Acute Assessment and Plan: Plan is above (5) Pneumonia: Qualifiers: Laterality: unspecified laterality Lung location: unspecified part of lung Pneumonia type: due to unspecified organism Qualified Code(s): J18.9 - Pneumonia, unspecified organism Code(s): J18.9 - Pneumonia, unspecified organism Status: Acute Assessment and Plan: Upon arrival suspected patient may have pneumonia however chest x-ray does not show any cardiopulmonary pathology will continue to monitor (6) Atrial fibrillation: Code(s): I48.91 - Unspecified atrial fibrillation Status: Acute Assessment and Plan: Rate is controlled patient is anticoagulated with Pradaxa Subjective Date/time seen: 09/29/19 15:00 Patient is 78-year-old male resident of [facility] with history of dementia atrial fibrillation had developed fever and had been more somnolent and confused to further evaluate patient was sent to emergency department patient is unable to provide any review of symptoms or history suspect the patient may have a UTI and possibly pneumonia however chest x-ray did not show any acute cardiomegaly pulmonary pathology, suspect patient may have UTI and started the patient on Rocephin, IV hydration, patient patient urine and blood a growing Proteus mirabilis sensitive to Rocephin and ampillicin patient is seen by started the patient on Amipillicin and continue if patient develop fever in 48hrs, will need renaland bladder US, Tylenol for fever his fever is trending down, today patient is
[2019-09-29 17:36] LABS: Glucose Point of Care 182 (65-105)
[2019-09-29] MEDS: ATORVASTATIN 20 MG TABLET PO (21:01)
[2019-09-29] MEDS: DOXAZOSIN MESYLATE 4 MG TABLET 8 MG PO (21:01)
[2019-09-29] MEDS: ACETAMINOPHEN 325 MG TABLET 650 MG PO (21:03)
[2019-09-29 21:11] LABS: Glucose Point of Care 171 (65-105)
[2019-09-30] VITALS (21 sets, daily range): BP systolic 136–162; BP diastolic 56–94; PULSE 58–89; RESP 14–24; TEMP 36.6–38.5; O2SAT 91–98
[2019-09-30] MEDS: IPRATROPIUM BR 0.02% INH SOLN 0.5 MG/2.5 ML VIAL INHALATION ×4 (02:03→19:11)
[2019-09-30] MEDS: LEVALBUTEROL NEB 1.25 MG/3 ML INHALATION ×4 (02:03→19:12)
--- NOTE | 2019-09-30 02:04 | PCRCNOTE ---
Window of time for administration has passed. See next scheduled administration.
[2019-09-30 05:36] LABS: Hematocrit 35.7 % (42.0-52.0); Hemoglobin 11.2 g/dL (14.0-18.0); Mean Corpuscular HGB Conc 31.4 g/dl (32-36); Mean Corpuscular Hemoglobin 29.2 pg (26-34); Mean Corpuscular Volume 93.2 fl (80-100); Mean Platelet Volume 11.5 fl (7.4-10.4); Platelet Count Result 177 k/mm3 (150-375); Red Blood Count 3.83 M/mm3 (4.6-6.20); Red Cell Distribution Width 15.1 % (11.5-14.5); White Blood Count 9.8 K/mm3 (4.5-10.0)
[2019-09-30 05:48] LABS: Blood Urea Nitrogen 18 mg/dL (9-20); Calcium 7.9 mg/dL (8.4-10.2); Carbon Dioxide 32 mmol/L (22-30); Chloride 101 mmol/L (98-107); Estimated CRCL calculation 82 ml/min; Estimated Glomerular Filt Rate > 60; Glucose 128 mg/dL (75-110); Potassium 3.9 mmol/L (3.4-5.0); Sodium 140 mmol/L (137-145)
[2019-09-30] MEDS: AMPICILLIN 2 GM/NS 100 ML 2 GM/100 ML BAG IVPB ×3 (06:03→17:11)
[2019-09-30] MEDS: DABIGATRAN ETEXILATE 150 MG CAPSULE PO ×2 (07:57→17:12)
[2019-09-30] MEDS: FAMOTIDINE 20 MG TABLET 40 MG PO ×2 (07:58→20:15)
[2019-09-30] MEDS: DIVALPROEX SODIUM SPRINKLE 125 MG CAP.DR 250 MG PO ×2 (07:58→20:16)
[2019-09-30] MEDS: ESCITALOPRAM OXALATE 5 MG TABLET PO (07:58)
[2019-09-30] MEDS: DONEPEZIL HCL 10 MG TABLET PO (07:58)
[2019-09-30] MEDS: LOSARTAN POTASSIUM 100 MG TABLET PO (07:59)
[2019-09-30] MEDS: FUROSEMIDE INJ 40 MG/4 ML VIAL 20 MG IV PUSH ×2 (07:59→17:12)
[2019-09-30] MEDS: MEMANTINE 10 MG TABLET PO ×2 (07:59→20:15)
[2019-09-30] MEDS: POTASSIUM CHLORIDE 10 MEQ TABLET.ER PO (08:00)
[2019-09-30] MEDS: METOPROLOL SUCCINATE EXT REL 50 MG TABCR PO (08:00)
[2019-09-30 09:03] LABS: Glucose Point of Care 123 (65-105)
--- NOTE | 2019-09-30 10:38 | PM.IMPN ---
Progress Note: A&P Assessment and Plan (1) Dementia: Qualifiers: Dementia type: Alzheimer's disease Alzheimer's disease onset: late-onset Dementia behavioral disturbance: with behavioral disturbance Qualified Code(s): G30.1 - Alzheimer's disease with late onset; F02.81 - Dementia in other diseases classified elsewhere with behavioral disturbance Code(s): F03.90 - Unspecified dementia without behavioral disturbance Status: Acute Assessment and Plan: Patient is 78-year-old male resident of residential with history of dementia atrial fibrillation had developed fever and had been more somnolent and confused to further evaluate patient was sent to emergency department patient is unable to provide any review of symptoms or history suspect the patient may have a UTI and possibly pneumonia however chest x-ray did not show any acute cardiomegaly pulmonary pathology, suspect patient may have UTI and started the patient on Rocephin, IV hydration, patient patient urine and blood a growing Proteus mirabilis sensitive to Rocephin and ampillicin patient is seen by started the patient on Amipillicin. Pneumonia is mentioned but is unlikely. As per previous note, pt is wheezy and sob today pt is on iv lasix will order CXR to check for fluid overload. Pt has a history of systolic CHF. Pt appears fever free today continue to monitor. Continue ampicillin IV for proteus mirabilis in urine and blood culture from 09/26, if pt spikes fever will need renal US. Await repeat BC report. (2) Bacteriuria with pyuria: Code(s): R82.71 - Bacteriuria; R82.81 - Pyuria Status: Acute Assessment and Plan: Plan is above (3) Sepsis: Qualifiers: Sepsis acute organ dysfunction status: without acute organ dysfunction Sepsis type: sepsis due to unspecified organism Qualified Code(s): A41.9 - Sepsis, unspecified organism Code(s): A41.9 - Sepsis, unspecified organism Status: Acute Assessment and Plan: Patient met the criteria upon arrival with a leukocytosis tachypnea fever and source is UTI urine blood cultures is growing Proteus mirabilis sensitive to Rocephin and ampicillin, seen by Dr. Freeman and plan is above. (4) UTI (urinary tract infection): Qualifiers: Hematuria presence: with hematuria Urinary tract infection type: site unspecified Qualified Code(s): N39.0 - Urinary tract infection, site not specified; R31.9 - Hematuria, unspecified Code(s): N39.0 - Urinary tract infection, site not specified Status: Acute Assessment and Plan: Plan is above (5) Atrial fibrillation: Code(s): I48.91 - Unspecified atrial fibrillation Status: Acute Assessment and Plan: Rate is controlled patient is anticoagulated with Pradaxa Subjective Date/time seen: 09/30/19 10:38 Interval history: Patient is 78-year-old male resident of residential with history of dementia atrial fibrillation had developed fever and had been more somnolent and confused to further evaluate patient was sent to emergency department patient is unable to provide any review of symptoms or history suspect the patient may have a UTI and possibly pneumonia however chest x-ray did not show any acute cardiomegaly pulmonary pathology, suspect patient may have UTI and started the patient on Rocephin, IV hydration, patient patient urine and blood a growing Proteus mirabilis sensitive to Rocephin and ampillicin patient is seen by started the patient on Amipillicin. As per previous note, pt is wheezy and sob today pt is on iv lasix will order CXR to check for fluid overload. Pt has a history of systolic CHF. Pt appears fever free today continue to monitor. Continue ampicillin IV for proteus mirabilis in urine and bood from 09/26, if pt spikes fever will need renal US. Await repeat BC report. Review of Systems Review of Systems: All systems reviewed & are unremarkable except
[2019-09-30 12:40] LABS: Glucose Point of Care 165 (65-105)
--- NOTE | 2019-09-30 13:36 | WPDINFPN2 ---
Progress Note: A&P Assessment and Plan (1) UTI (urinary tract infection): Qualifiers: Hematuria presence: with hematuria Urinary tract infection type: site unspecified Qualified Code(s): N39.0 - Urinary tract infection, site not specified; R31.9 - Hematuria, unspecified Code(s): N39.0 - Urinary tract infection, site not specified Status: Acute Assessment and Plan: 1. Proteus bacteremia due to UTI, other sources unlikely for the + BC. Still febrile 2. Dementia 3. BPH REC Amp #3 (antibiotic # 5), continue. Due to fever, get US. Updated at bedside. Subjective Date/time seen: 09/30/19 13:36 Interval history: non verbal, looks comfortable Exam Narrative: Exam Narrative: t max 39.2 Const: General: no acute distress Eyes: General: appearance normal, both eyes and all related structures Resp: Effort & Inspection: normal respiratory effort Auscultation: clear to auscultation bilaterally Cardio: Rate: regular rate Rhythm: regular rhythm Heart sounds: Gallop heart sound present and no murmurs GI: GI Palp: Yes Soft to palpation and No Tenderness to palpation present (GI) Objective Data Vital Signs Vital Signs: Vital Signs - 24 hr 09/29/19 14:00 09/29/19 14:29 09/29/19 14:39 Temperature 37.6 C H Pulse Rate 76 75 88 Respiratory Rate 16 18 18 Blood Pressure 120/55 L Pulse Oximetry 93 09/29/19 16:00 09/29/19 20:00 09/29/19 20:48 Temperature Pulse Rate 80 67 67 Respiratory Rate 18 Blood Pressure Pulse Oximetry 09/29/19 20:50 09/29/19 20:52 09/29/19 20:56 Temperature 39.2 C H Pulse Rate 67 65 Respiratory Rate 24 H 18 Blood Pressure 161/74 H Pulse Oximetry 94 94 09/29/19 21:03 09/29/19 22:03 09/29/19 22:37 Temperature 39.2 C H 36.9 C 36.9 C Pulse Rate Respiratory Rate Blood Pressure Pulse Oximetry 09/30/19 00:00 09/30/19 02:05 09/30/19 02:10 Temperature Pulse Rate 59 L 60 58 L Respiratory Rate 18 18 Blood Pressure Pulse Oximetry 09/30/19 04:00 09/30/19 05:52 09/30/19 08:00 Temperature 36.6 C Pulse Rate 67 69 75 Respiratory Rate 22 H Blood Pressure 162/91 H Pulse Oximetry 96 09/30/19 08:50 09/30/19 09:38 09/30/19 10:03 Temperature 36.6 C Pulse Rate 85 85 88 Respiratory Rate 14 14 14 Blood Pressure 146/94 H Pulse Oximetry 96 91 09/30/19 13:31 Temperature Pulse Rate 81 Respiratory Rate 20 Blood Pressure Pulse Oximetry Intake/Output Intake/Output: Intake & Output 09/27/19 09/28/19 09/29/19 09/30/19 23:59 23:59 23:59 23:59 Intake Total 2200 1370 2150 850 Output Total 1050 375 800 Balance 1150 1370 1775 50 Meds/Results Medications: Active Medications Generic Name Dose Route Start Last Admin Trade Name Freq PRN Reason Stop Dose Admin Acetaminophen 650 mg 09/27/19 17:50 09/29/19 21:03 Tylenol Tablet PO 650 mg Q6H PRN Administration Mild Pain (1-3) or Fever Atorvastatin Calcium 20 mg 09/26/19 21:00 09/29/19 21:01 Lipitor PO 20 mg HS SYLVESTER Administration Dabigatran 150 mg 09/26/19 17:00 09/30/19 07:57 Pradaxa PO 150 mg BID SYLVESTER Administration Dextrose 12.5 gm 09/26/19 18:43 Dextrose 50% Syringe IV PUSH PRN PRN Hypoglycemia Protocol Divalproex Sodium 250 mg 09/26/19 21:00 09/30/19 07:58 Depakote Sprinkle PO 250 mg Q12HR SYLVESTER Administration Donepezil HCl 10 mg 09/27/19 09:00 09/30/19 07:58 Aricept PO 10/27/19 09:01 10 mg DAILY SYLVESTER Administration Doxazosin Mesylate 8 mg 09/26/19 21:00 09/29/19 21:01 Cardura PO 8 mg HS SYLVESTER Administration Escitalopram Oxalate 5 mg 09/27/19 09:00 09/30/19 07:58 Lexapro PO 5 mg DAILY SYLVESTER Administration Famotidine 40 mg 09/26/19 21:00 09/30/19 07:58 Pepcid PO 40 mg Q12HR SYLVESTER Administration Furosemide 20 mg 09/28/19 09:00 09/30/19 07:59 Lasix Inj IV PUSH 20 mg BID SYLVESTER Administration Glimepiride
[2019-09-30] MEDS: ACETAMINOPHEN 325 MG TABLET 650 MG PO (14:11)
--- NOTE | 2019-09-30 16:29 | PC.NURSE ---
On 09/30/19, the student, Luis Coleman, provided care and completed [facility] documentation on this patient. I have reviewed the student's documentation and agree with the findings.
[2019-09-30] MEDS: INSULIN ASPART (*BKC) 100 UNITS/ML SUB-Q (17:31)
[2019-09-30 17:36] LABS: Glucose Point of Care 225 (65-105)
[2019-09-30] MEDS: ATORVASTATIN 20 MG TABLET PO (20:15)
[2019-09-30] MEDS: DOXAZOSIN MESYLATE 4 MG TABLET 8 MG PO (20:16)
[2019-09-30 21:15] LABS: Glucose Point of Care 148 (65-105)
[2019-10-01] VITALS (18 sets, daily range): BP systolic 120–149; BP diastolic 54–65; PULSE 55–73; RESP 16–22; TEMP 36.1–37.9; O2SAT 92–94; BMI 47.8
[2019-10-01] MEDS: AMPICILLIN 2 GM/NS 100 ML 2 GM/100 ML BAG IVPB ×4 (00:30→18:11)
[2019-10-01] MEDS: LEVALBUTEROL NEB 1.25 MG/3 ML INHALATION ×4 (01:34→20:00)
[2019-10-01] MEDS: IPRATROPIUM BR 0.02% INH SOLN 0.5 MG/2.5 ML VIAL INHALATION ×4 (01:34→19:59)
[2019-10-01 05:38] LABS: Hematocrit 37.1 % (42.0-52.0); Hemoglobin 11.6 g/dL (14.0-18.0); Mean Corpuscular HGB Conc 31.3 g/dl (32-36); Mean Corpuscular Hemoglobin 29.4 pg (26-34); Mean Corpuscular Volume 94.2 fl (80-100); Mean Platelet Volume 11.5 fl (7.4-10.4); Platelet Count Result 181 k/mm3 (150-375); Red Blood Count 3.94 M/mm3 (4.6-6.20); Red Cell Distribution Width 15.1 % (11.5-14.5); White Blood Count 10.8 K/mm3 (4.5-10.0)
[2019-10-01 06:03] LABS: Blood Urea Nitrogen 16 mg/dL (9-20); Calcium 8.2 mg/dL (8.4-10.2); Carbon Dioxide 33 mmol/L (22-30); Chloride 100 mmol/L (98-107); Estimated CRCL calculation 73 ml/min; Estimated Glomerular Filt Rate > 60; Glucose 120 mg/dL (75-110); Potassium 3.9 mmol/L (3.4-5.0); Sodium 139 mmol/L (137-145)
[2019-10-01] MEDS: DIVALPROEX SODIUM SPRINKLE 125 MG CAP.DR 250 MG PO ×2 (10:20→20:31)
[2019-10-01] MEDS: LOSARTAN POTASSIUM 100 MG TABLET PO (10:20)
[2019-10-01] MEDS: METOPROLOL SUCCINATE EXT REL 50 MG TABCR PO (10:21)
[2019-10-01] MEDS: POTASSIUM CHLORIDE 10 MEQ TABLET.ER PO (10:21)
[2019-10-01] MEDS: DONEPEZIL HCL 10 MG TABLET PO (10:21)
[2019-10-01] MEDS: ESCITALOPRAM OXALATE 5 MG TABLET PO (10:21)
[2019-10-01] MEDS: FAMOTIDINE 20 MG TABLET 40 MG PO ×2 (10:21→20:31)
[2019-10-01] MEDS: FUROSEMIDE INJ 40 MG/4 ML VIAL 20 MG IV PUSH ×2 (10:22→18:11)
[2019-10-01] MEDS: DABIGATRAN ETEXILATE 150 MG CAPSULE PO ×2 (10:22→18:11)
[2019-10-01] MEDS: MEMANTINE 10 MG TABLET PO ×2 (10:22→20:31)
[2019-10-01 10:38] LABS: Glucose Point of Care 122 (65-105)
--- NOTE | 2019-10-01 11:19 | PM.IMPN ---
Progress Note: A&P Assessment and Plan (1) Dementia: Qualifiers: Dementia type: Alzheimer's disease Alzheimer's disease onset: late-onset Dementia behavioral disturbance: with behavioral disturbance Qualified Code(s): G30.1 - Alzheimer's disease with late onset; F02.81 - Dementia in other diseases classified elsewhere with behavioral disturbance Code(s): F03.90 - Unspecified dementia without behavioral disturbance Status: Acute Assessment and Plan: Patient is 78-year-old male resident of senior living with history of dementia atrial fibrillation had developed fever and had been more somnolent and confused to further evaluate patient was sent to emergency department patient is unable to provide any review of symptoms or history suspect the patient for UTI. As per previous note, continue ampicillin IV for proteus mirabilis in urine and blood culture from 09/26, if pt spikes fever will need renal US. Await repeat BC report. wcc improving gradually. (2) Bacteriuria with pyuria: Code(s): R82.71 - Bacteriuria; R82.81 - Pyuria Status: Acute Assessment and Plan: Plan is above (3) Sepsis: Qualifiers: Sepsis acute organ dysfunction status: without acute organ dysfunction Sepsis type: sepsis due to unspecified organism Qualified Code(s): A41.9 - Sepsis, unspecified organism Code(s): A41.9 - Sepsis, unspecified organism Status: Acute Assessment and Plan: Patient met the criteria upon arrival with a leukocytosis tachypnea fever and source is UTI urine blood cultures is growing Proteus mirabilis sensitive to Rocephin and ampicillin, seen by Dr. Freeman and plan is above. Continue amipicillin (4) UTI (urinary tract infection): Qualifiers: Hematuria presence: with hematuria Urinary tract infection type: site unspecified Qualified Code(s): N39.0 - Urinary tract infection, site not specified; R31.9 - Hematuria, unspecified Code(s): N39.0 - Urinary tract infection, site not specified Status: Acute Assessment and Plan: Plan is above (5) Atrial fibrillation: Code(s): I48.91 - Unspecified atrial fibrillation Status: Acute Assessment and Plan: Rate is controlled patient is anticoagulated with Pradaxa (6) Pressure ulcer: Code(s): L89.90 - Pressure ulcer of unspecified site, unspecified stage Status: Acute Assessment and Plan: Pt has bilateral purple non blanching pressure ulcer to both buttocks, continue mepliex and offloading on bariatric bed. Subjective Date/time seen: 10/01/19 11:19 Interval history: Patient is 78-year-old male resident of senior living with history of dementia atrial fibrillation had developed fever and had been more somnolent and confused to further evaluate patient was sent to emergency department patient is unable to provide any review of symptoms or history suspect the patient may have a UTI and possibly pneumonia however chest x-ray did not show any acute cardiomegaly pulmonary pathology, pt has a UTI and started the patient on Rocephin, IV hydration, patient patient urine and blood a growing Proteus mirabilis sensitive to Rocephin and ampillicin patient is seen by started the patient on Amipillicin. As per previous note, pt appears fever free today, more alert today. Continue ampicillin IV for proteus mirabilis in urine and blood from 09/26, if pt spikes fever will need renal US. Await repeat BC report. Pt has pressure ulcers on bilateral buttocks, pt seen by wound team. Long discussion from daughter he is usually bedridden, lives in [facility]. Review of Systems Review of Systems: All systems reviewed & are unremarkable except as noted in HPI and below Exam Narrative: Exam Narrative: Elderly frail nonverbal Const: General: comfortable and no acute distress HENMT: General nose exam: Normal nares present Mouth: Yes moist mucous membranes Eyes:
[2019-10-01 14:15] LABS: Glucose Point of Care 174 (65-105)
[2019-10-01] MEDS: INSULIN ASPART (*BKC) 100 UNITS/ML SUB-Q (18:21)
[2019-10-01 18:25] LABS: Glucose Point of Care 202 (65-105)
[2019-10-01] MEDS: ATORVASTATIN 20 MG TABLET PO (20:31)
[2019-10-01] MEDS: DOXAZOSIN MESYLATE 4 MG TABLET 8 MG PO (20:31)
[2019-10-01 21:10] LABS: Glucose Point of Care 185 (65-105)
[2019-10-01] MEDS: ACETAMINOPHEN 325 MG TABLET 650 MG PO (21:54)
[2019-10-02] VITALS (16 sets, daily range): BP systolic 141–175; BP diastolic 62–85; PULSE 57–84; RESP 16–22; TEMP 36.2–36.8; O2SAT 93–97
[2019-10-02] MEDS: AMPICILLIN 2 GM/NS 100 ML 2 GM/100 ML BAG IVPB ×3 (00:20→13:15)
[2019-10-02] MEDS: IPRATROPIUM BR 0.02% INH SOLN 0.5 MG/2.5 ML VIAL INHALATION ×4 (01:10→22:03)
[2019-10-02] MEDS: LEVALBUTEROL NEB 1.25 MG/3 ML INHALATION ×4 (01:10→22:03)
[2019-10-02 05:58] LABS: Mean Corpuscular HGB Conc 31.6 g/dl (32-36); Mean Corpuscular Hemoglobin 29.5 pg (26-34); Mean Corpuscular Volume 93.4 fl (80-100); Mean Platelet Volume 11.4 fl (7.4-10.4); Platelet Count Result 211 k/mm3 (150-375); Red Blood Count 4.07 M/mm3 (4.6-6.20)
[2019-10-02 06:03] LABS: Blood Urea Nitrogen 21 mg/dL (9-20); Calcium 8.2 mg/dL (8.4-10.2); Carbon Dioxide 31 mmol/L (22-30); Chloride 100 mmol/L (98-107); Estimated CRCL calculation 70 ml/min; Estimated Glomerular Filt Rate > 60; Glucose 139 mg/dL (75-110); Potassium 3.8 mmol/L (3.4-5.0); Sodium 138 mmol/L (137-145)
[2019-10-02 08:34] LABS: Glucose Point of Care 147 (65-105)
[2019-10-02] MEDS: FAMOTIDINE 20 MG TABLET 40 MG PO ×2 (08:42→21:03)
[2019-10-02] MEDS: MEMANTINE 10 MG TABLET PO ×2 (08:42→21:04)
[2019-10-02] MEDS: DIVALPROEX SODIUM SPRINKLE 125 MG CAP.DR 250 MG PO ×2 (08:42→21:03)
[2019-10-02] MEDS: DABIGATRAN ETEXILATE 150 MG CAPSULE PO ×2 (08:42→17:04)
[2019-10-02] MEDS: FUROSEMIDE INJ 40 MG/4 ML VIAL 20 MG IV PUSH ×2 (08:43→17:04)
[2019-10-02] MEDS: DONEPEZIL HCL 10 MG TABLET PO (08:43)
[2019-10-02] MEDS: LOSARTAN POTASSIUM 100 MG TABLET PO (08:43)
[2019-10-02] MEDS: METOPROLOL SUCCINATE EXT REL 50 MG TABCR PO (08:43)
[2019-10-02] MEDS: ESCITALOPRAM OXALATE 5 MG TABLET PO (08:43)
[2019-10-02] MEDS: POTASSIUM CHLORIDE 10 MEQ TABLET.ER PO (08:43)
[2019-10-02 12:10] LABS: Glucose Point of Care 182 (65-105)
--- NOTE | 2019-10-02 13:26 | PM.IMPN ---
Progress Note: A&P Assessment and Plan (1) Dementia: Qualifiers: Dementia type: Alzheimer's disease Alzheimer's disease onset: late-onset Dementia behavioral disturbance: with behavioral disturbance Qualified Code(s): G30.1 - Alzheimer's disease with late onset; F02.81 - Dementia in other diseases classified elsewhere with behavioral disturbance Code(s): F03.90 - Unspecified dementia without behavioral disturbance Status: Acute Assessment and Plan: Patient is 78-year-old male resident of long term with history of dementia atrial fibrillation had developed fever and had been more somnolent and confused to further evaluate patient was sent to emergency department patient is unable to provide any review of symptoms or history suspect the patient for UTI. As per previous note, continue ampicillin IV for proteus mirabilis in urine and blood culture from 09/26, if pt spikes fever will need renal US. BC is negative so far. wcc improving, continue ampicillin. (2) Bacteriuria with pyuria: Code(s): R82.71 - Bacteriuria; R82.81 - Pyuria Status: Acute Assessment and Plan: Plan is above (3) Sepsis: Qualifiers: Sepsis acute organ dysfunction status: without acute organ dysfunction Sepsis type: sepsis due to unspecified organism Qualified Code(s): A41.9 - Sepsis, unspecified organism Code(s): A41.9 - Sepsis, unspecified organism Status: Acute Assessment and Plan: Patient met the criteria upon arrival with a leukocytosis tachypnea fever and source is UTI urine blood cultures is growing Proteus mirabilis sensitive to Rocephin and ampicillin, seen by Dr. Freeman and plan is above. Continue amipicillin (4) UTI (urinary tract infection): Qualifiers: Hematuria presence: with hematuria Urinary tract infection type: site unspecified Qualified Code(s): N39.0 - Urinary tract infection, site not specified; R31.9 - Hematuria, unspecified Code(s): N39.0 - Urinary tract infection, site not specified Status: Acute Assessment and Plan: Plan is above (5) Atrial fibrillation: Code(s): I48.91 - Unspecified atrial fibrillation Status: Acute Assessment and Plan: Rate is controlled patient is anticoagulated with Pradaxa (6) Pressure ulcer: Code(s): L89.90 - Pressure ulcer of unspecified site, unspecified stage Status: Acute Assessment and Plan: Pt has bilateral purple non blanching pressure ulcer to both buttocks, continue mepliex and offloading on bariatric bed. Subjective Date/time seen: 10/02/19 13:26 Interval history: Patient is 78-year-old male resident of long term with history of dementia atrial fibrillation had developed fever and had been more somnolent and confused to further evaluate patient was sent to emergency department patient is unable to provide any review of symptoms or history suspect the patient may have a UTI and possibly pneumonia however chest x-ray did not show any acute cardiomegaly pulmonary pathology, pt has a UTI and started the patient on Rocephin, IV hydration, patient patient urine and blood a growing Proteus mirabilis sensitive to Rocephin and ampillicin patient is seen by started the patient on Amipillicin. As per previous note, pt appears fever free today, more alert today. Continue ampicillin IV for proteus mirabilis in urine and blood from 09/26, if pt spikes fever will need renal US. BC report negative so far. Pt has pressure ulcers on bilateral buttocks, pt seen by wound team. Long discussion from daughter he is usually bedridden, lives in [facility]. Continue IV ampicillin. Review of Systems Review of Systems: All systems reviewed & are unremarkable except as noted in HPI and below Exam Narrative: Exam Narrative: Elderly frail nonverbal Const: General: comfortable and no acute distress HENMT: General nose exam: Normal nares present Mout
--- NOTE | 2019-10-02 13:31 | WPDINFPN2 ---
Progress Note: A&P Assessment and Plan (1) UTI (urinary tract infection): Qualifiers: Hematuria presence: with hematuria Urinary tract infection type: site unspecified Qualified Code(s): N39.0 - Urinary tract infection, site not specified; R31.9 - Hematuria, unspecified Code(s): N39.0 - Urinary tract infection, site not specified Status: Acute Assessment and Plan: 1. Proteus bacteremia due to UTI, other sources unlikely for the + BC. US normal, temp declining 2. Dementia 3. BPH REC Amp #5 (antibiotic # 7), change to oral x 7 days, see orders. Discussed with at bedside. No preventative antibiotics. Will sign off. Subjective Date/time seen: 10/02/19 13:31 Interval history: non verbal, no events nor distress noted by Exam Narrative: Exam Narrative: t max 37.9 Const: General: no acute distress Eyes: General: appearance normal, both eyes and all related structures Resp: Effort & Inspection: normal respiratory effort Auscultation: clear to auscultation bilaterally Cardio: Rate: regular rate Rhythm: regular rhythm Heart sounds: no gallops and no murmurs GI: Inspection: non-distended GI Palp: Yes Soft to palpation, No Tenderness to palpation present (GI) and No Guarding due to palpation present (GI) Objective Data Vital Signs Vital Signs: Vital Signs - 24 hr 10/01/19 14:00 10/01/19 14:07 10/01/19 16:00 Temperature 36.4 C Pulse Rate 68 66 65 Respiratory Rate 18 18 Blood Pressure 147/60 H Pulse Oximetry 92 10/01/19 20:00 10/01/19 20:08 10/01/19 21:54 Temperature 37.0 C 37.9 C H Pulse Rate 55 L 62 Respiratory Rate 22 H 18 Blood Pressure 149/65 H Pulse Oximetry 93 10/01/19 21:55 10/01/19 22:54 10/01/19 23:48 Temperature 37.9 C H 37.7 C H 37.3 C Pulse Rate Respiratory Rate Blood Pressure Pulse Oximetry 10/02/19 00:00 10/02/19 01:10 10/02/19 01:20 Temperature Pulse Rate 57 L 57 L 61 Respiratory Rate 16 16 Blood Pressure Pulse Oximetry 10/02/19 04:00 10/02/19 06:00 10/02/19 07:49 Temperature 36.2 C L Pulse Rate 62 81 84 Respiratory Rate 22 H 18 Blood Pressure 153/73 H Pulse Oximetry 95 94 10/02/19 07:58 10/02/19 08:00 10/02/19 08:43 Temperature Pulse Rate 82 64 76 Respiratory Rate 18 Blood Pressure Pulse Oximetry Intake/Output Intake/Output: Intake & Output 09/29/19 09/30/19 10/01/19 10/02/19 23:59 23:59 23:59 23:59 Intake Total 2150 2050 1680 1120 Output Total 375 2200 Balance 1775 -150 1680 1120 Meds/Results Medications: Active Medications Generic Name Dose Route Start Last Admin Trade Name Freq PRN Reason Stop Dose Admin Acetaminophen 650 mg 09/27/19 17:50 10/01/19 21:54 Tylenol Tablet PO 650 mg Q6H PRN Administration Mild Pain (1-3) or Fever Ampicillin 1,000 mg 10/02/19 18:00 Ampicillin Trihydrate Capsule PO 10/08/19 23:59 Q6HR SYLVESTER Atorvastatin Calcium 20 mg 09/26/19 21:00 10/01/19 20:31 Lipitor PO 20 mg HS SYLVESTER Administration Dabigatran 150 mg 09/26/19 17:00 10/02/19 08:42 Pradaxa PO 150 mg BID SYLVESTER Administration Dextrose 12.5 gm 09/26/19 18:43 Dextrose 50% Syringe IV PUSH PRN PRN Hypoglycemia Protocol Divalproex Sodium 250 mg 09/26/19 21:00 10/02/19 08:42 Depakote Sprinkle PO 250 mg Q12HR SYLVESTER Administration Donepezil HCl 10 mg 09/27/19 09:00 10/02/19 08:43 Aricept PO 10/27/19 09:01 10 mg DAILY SYLVESTER Administration Doxazosin Mesylate 8 mg 09/26/19 21:00 10/01/19 20:31 Cardura PO 8 mg HS SYLVESTER Administration Escitalopram Oxalate 5 mg 09/27/19 09:00 10/02/19 08:43 Lexapro PO 5 mg DAILY SYLVESTER Administration Famotidine 40 mg 09/26/19 21:00 10/02/19 08:42 Pepcid PO 40 mg Q12HR SYLVESTER Administration Furosemide 20 mg 09/28/19 09:00 10/02/19 08:43 Lasix Inj IV PUSH 20 mg BID SYLVESTER Administration Glimepiride 2 mg 09/27/19
[2019-10-02] MEDS: AMPICILLIN TRIHYDRATE 500 MG CAPSULE 1000 MG PO (17:04)
[2019-10-02] MEDS: INSULIN ASPART (*BKC) 100 UNITS/ML SUB-Q (17:15)
[2019-10-02 17:30] LABS: Glucose Point of Care 235 (65-105)
[2019-10-02 20:45] LABS: Glucose Point of Care 236 (65-105)
[2019-10-02] MEDS: DOXAZOSIN MESYLATE 4 MG TABLET 8 MG PO (21:03)
[2019-10-02] MEDS: ATORVASTATIN 20 MG TABLET PO (21:03)
[2019-10-03] VITALS (10 sets, daily range): BP systolic 115–139; BP diastolic 59–69; PULSE 58–80; RESP 16–22; TEMP 36.4–36.6; O2SAT 91–98
[2019-10-03] MEDS: AMPICILLIN TRIHYDRATE 500 MG CAPSULE 1000 MG PO ×4 (00:14→18:18)
[2019-10-03] MEDS: LEVALBUTEROL NEB 1.25 MG/3 ML INHALATION ×3 (02:58→14:30)
[2019-10-03] MEDS: IPRATROPIUM BR 0.02% INH SOLN 0.5 MG/2.5 ML VIAL INHALATION ×3 (02:58→14:30)
[2019-10-03 05:33] LABS: Hematocrit 35.6 % (42.0-52.0); Hemoglobin 11.2 g/dL (14.0-18.0); Mean Corpuscular HGB Conc 31.5 g/dl (32-36); Mean Corpuscular Hemoglobin 29.7 pg (26-34); Mean Corpuscular Volume 94.4 fl (80-100); Mean Platelet Volume 11.4 fl (7.4-10.4); Platelet Count Result 235 k/mm3 (150-375); Red Blood Count 3.77 M/mm3 (4.6-6.20); Red Cell Distribution Width 15.1 % (11.5-14.5); White Blood Count 9.6 K/mm3 (4.5-10.0)
[2019-10-03 05:51] LABS: Blood Urea Nitrogen 20 mg/dL (9-20); Calcium 7.9 mg/dL (8.4-10.2); Carbon Dioxide 32 mmol/L (22-30); Chloride 100 mmol/L (98-107); Estimated CRCL calculation 79 ml/min; Estimated Glomerular Filt Rate > 60; Glucose 214 mg/dL (75-110); Potassium 4.1 mmol/L (3.4-5.0); Sodium 137 mmol/L (137-145)
[2019-10-03] MEDS: ESCITALOPRAM OXALATE 5 MG TABLET PO (08:47)
[2019-10-03] MEDS: DONEPEZIL HCL 10 MG TABLET PO (08:47)
[2019-10-03] MEDS: DIVALPROEX SODIUM SPRINKLE 125 MG CAP.DR 250 MG PO (08:47)
[2019-10-03] MEDS: FAMOTIDINE 20 MG TABLET 40 MG PO (08:48)
[2019-10-03] MEDS: LOSARTAN POTASSIUM 100 MG TABLET PO (08:48)
[2019-10-03] MEDS: DABIGATRAN ETEXILATE 150 MG CAPSULE PO ×2 (08:48→16:45)
[2019-10-03] MEDS: MEMANTINE 10 MG TABLET PO (08:48)
[2019-10-03] MEDS: POTASSIUM CHLORIDE 10 MEQ TABLET.ER PO (08:48)
[2019-10-03] MEDS: METOPROLOL SUCCINATE EXT REL 50 MG TABCR PO (08:48)
[2019-10-03] MEDS: FUROSEMIDE INJ 40 MG/4 ML VIAL 20 MG IV PUSH ×2 (08:48→16:45)
[2019-10-03 11:02] LABS: Glucose Point of Care 179 (65-105)
--- NOTE | 2019-10-03 13:17 | PM.IMPN ---
Progress Note: A&P Assessment and Plan (1) Dementia: Qualifiers: Dementia type: Alzheimer's disease Alzheimer's disease onset: late-onset Dementia behavioral disturbance: with behavioral disturbance Qualified Code(s): G30.1 - Alzheimer's disease with late onset; F02.81 - Dementia in other diseases classified elsewhere with behavioral disturbance Code(s): F03.90 - Unspecified dementia without behavioral disturbance Status: Acute Assessment and Plan: Patient is 78-year-old male resident of [facility] with history of dementia atrial fibrillation had developed fever and had been more somnolent and confused to further evaluate patient was sent to emergency department patient is unable to provide any review of symptoms. As per previous note, continue ampicillin IV for proteus mirabilis in urine and blood culture from 09/26, if pt spikes fever will need renal US. BC is negative so far. wcc improved, continue ampicillin, until sat, discharge sun morning on oral antibiotics. (2) Bacteriuria with pyuria: Code(s): R82.71 - Bacteriuria; R82.81 - Pyuria Status: Acute Assessment and Plan: Plan is above (3) Sepsis: Qualifiers: Sepsis acute organ dysfunction status: without acute organ dysfunction Sepsis type: sepsis due to unspecified organism Qualified Code(s): A41.9 - Sepsis, unspecified organism Code(s): A41.9 - Sepsis, unspecified organism Status: Acute Assessment and Plan: Patient met the criteria upon arrival with a leukocytosis tachypnea fever and source is UTI urine blood cultures is growing Proteus mirabilis sensitive to Rocephin and ampicillin, seen by Dr. Freeman and plan is above. Continue amipicillin day 6 of 7. (4) UTI (urinary tract infection): Qualifiers: Hematuria presence: with hematuria Urinary tract infection type: site unspecified Qualified Code(s): N39.0 - Urinary tract infection, site not specified; R31.9 - Hematuria, unspecified Code(s): N39.0 - Urinary tract infection, site not specified Status: Acute Assessment and Plan: Plan is above (5) Atrial fibrillation: Code(s): I48.91 - Unspecified atrial fibrillation Status: Acute Assessment and Plan: Rate is controlled patient is anticoagulated with Pradaxa (6) Pressure ulcer: Code(s): L89.90 - Pressure ulcer of unspecified site, unspecified stage Status: Acute Assessment and Plan: Pt has bilateral purple non blanching pressure ulcer to both buttocks, continue mepliex and offloading on bariatric bed. Subjective Date/time seen: 10/03/19 13:17 Interval history: Patient is 78-year-old male resident of [facility] with history of dementia atrial fibrillation had developed fever and had been more somnolent and confused to further evaluate patient was sent to emergency department patient is unable to provide any review of symptoms or history suspect the patient may have a UTI and possibly pneumonia however chest x-ray did not show any acute cardiomegaly pulmonary pathology, pt has a UTI and started the patient on Rocephin, IV hydration, patient patient urine and blood a growing Proteus mirabilis sensitive to Rocephin and ampillicin patient is seen by started the patient on Ampillicin. As per previous note, pt appears fever free today, more alert today. Continue ampicillin IV for proteus mirabilis in urine and blood from 09/26, if pt spikes fever will need renal US. BC report negative so far. Pt has pressure ulcers on bilateral buttocks, pt seen by wound team. Long discussion from daughter he is usually bedridden, lives in [facility]. Continue IV ampicillin, discharge on sunday with oral antibiotics. Review of Systems Review of Systems: All systems reviewed & are unremarkable except as noted in HPI and below ROS unobtainable: unobtainable due to mental condition and unobtainable due to mental status Ex
--- NOTE | 2019-10-03 14:31 | PM.DS ---
DS: Diagnosis Admitting Diagnosis Admitting Diagnosis: Alzheimer's disease with late onset Discharge Diagnosis (1) Dementia: Qualifiers: Dementia type: Alzheimer's disease Alzheimer's disease onset: late-onset Dementia behavioral disturbance: with behavioral disturbance Qualified Code(s): G30.1 - Alzheimer's disease with late onset; F02.81 - Dementia in other diseases classified elsewhere with behavioral disturbance Code(s): F03.90 - Unspecified dementia without behavioral disturbance Status: Acute Assessment and Plan: Patient is 78-year-old male resident of [facility] with history of dementia atrial fibrillation had developed fever and had been more somnolent and confused to further evaluate patient was sent to emergency department patient is unable to provide any review of symptoms. As per previous note, pt was treated with ampicillin IV for proteus mirabilis in urine and blood culture from 09/26, Rpt BC is negative so far. Can transition to oral ampicillin for 7 days, already completed one day in hospital. (2) Bacteriuria with pyuria: Code(s): R82.71 - Bacteriuria; R82.81 - Pyuria Status: Acute Assessment and Plan: Plan is above (3) Sepsis: Qualifiers: Sepsis acute organ dysfunction status: without acute organ dysfunction Sepsis type: sepsis due to unspecified organism Qualified Code(s): A41.9 - Sepsis, unspecified organism Code(s): A41.9 - Sepsis, unspecified organism Status: Acute Assessment and Plan: Patient met the criteria upon arrival with a leukocytosis tachypnea fever and source is UTI urine blood cultures is growing Proteus mirabilis sensitive to Rocephin and ampicillin, seen by Dr. Freeman and plan is above. (4) UTI (urinary tract infection): Qualifiers: Hematuria presence: with hematuria Urinary tract infection type: site unspecified Qualified Code(s): N39.0 - Urinary tract infection, site not specified; R31.9 - Hematuria, unspecified Code(s): N39.0 - Urinary tract infection, site not specified Status: Acute Assessment and Plan: Plan is above (5) Atrial fibrillation: Code(s): I48.91 - Unspecified atrial fibrillation Status: Acute Assessment and Plan: Rate is controlled patient is anticoagulated with Pradaxa (6) Pressure ulcer: Code(s): L89.90 - Pressure ulcer of unspecified site, unspecified stage Status: Acute Assessment and Plan: Pt has bilateral purple non blanching pressure ulcer to both buttocks, continue mepliex and offloading on bariatric bed in hospital, continue appriopriate wound care in SNF. DS: Summary Time Spent with Patient Time attestation: Total time spent providing and/or coordinating discharge services:38 minutes on day of discharge Exam Narrative: Exam Narrative: Elderly frail nonverbal Const: General: comfortable and no acute distress HENMT: General nose exam: Normal nares present Mouth: Yes moist mucous membranes Eyes: General: appearance normal, both eyes and all related structures Sclera: sclerae normal Neck: Neck: supple Resp: Effort & Inspection: audible wheezes Auscultation: wheezes Cardio: Rate: regular rate Rhythm: regular rhythm GI: Auscultation: normal bowel sounds Back/Spine/Pelvis: Other: Bilateral pressure ulcers on buttocks Skin: General skin exam: normal color and no rashes or lesions noted Neuro: Other: Patient is more awake and alert Extrem: General: normal to inspection Psych: Other: Patient is more awake and alert DS: Data Data Completed and Pending Labs on day of discharge: Labs from last 24 hours 10/03/19 10/03/19 10/03/19 09:05 05:03 05:03 WBC 9.6 RBC 3.77 L Hgb 11.2 L Hct 35.6 L MCV 94.4 MCH 29.7 MCHC 31.5 L RDW 15.1 H Plt Count 235 MPV 11.4 H Sodium 137 Potassium 4.1 Chloride 100 Carbon Dioxide 32 H BUN 20 Creat
[2019-10-03 14:48] LABS: Glucose Point of Care 198 (65-105)
[2019-10-03] MEDS: INSULIN ASPART (*BKC) 100 UNITS/ML SUB-Q (18:17)
[2019-10-03 18:28] LABS: Glucose Point of Care 215 (65-105)
== END 2019-10-03 19:51 | DRG 872 ==
LOC: ANHED 00:30 → ANH2MED 02:16
PROVIDERS: Family Medicine; Admitting Provider Internal Medicine; Emergency Provider Emergency Medicine; PCP Internal Medicine; Visit Provider Family Medicine
DX: A41.9 Sepsis, unspecified organism (principal); N39.0 Urinary tract infection, site not specified; F02.81 Dementia in other diseases classified elsewhere, unspecified severity, with behavioral disturbance; I50.32 Chronic diastolic (congestive) heart failure; R31.9 Hematuria, unspecified; B96.4 Proteus (mirabilis) (morganii) as the cause of diseases classified elsewhere; I11.0 Hypertensive heart disease with heart failure; G30.9 Alzheimer's disease, unspecified; I48.91 Unspecified atrial fibrillation; F41.8 Other specified anxiety disorders; E78.5 Hyperlipidemia, unspecified; G47.33 Obstructive sleep apnea (adult) (pediatric); E11.9 Type 2 diabetes mellitus without complications; I25.10 Atherosclerotic heart disease of native coronary artery without angina pectoris; N40.0 Benign prostatic hyperplasia without lower urinary tract symptoms; R32 Unspecified urinary incontinence; L89.329 Pressure ulcer of left buttock, unspecified stage; L89.319 Pressure ulcer of right buttock, unspecified stage; Z95.1 Presence of aortocoronary bypass graft; Z95.5 Presence of coronary angioplasty implant and graft
CPT/HCPCS: 36415; 51701; 71045; 71046; 76775; 80048; 80053; 81001; 83605; 83735; 83880; 85025; 85027; 85055; 85610; 85730; 86140; 87040; 87077; 87081; 87086; 87088; 87186; 87804; 93005; 93971; 94640; 96361; 96365; 96375; 99285; A9270; G0378; J0131; J0290; J0456; J0696; J1741; J1815; J1940; J7120